=== PATIENT | male | born 1990 | race Two or more races ===

== ENCOUNTER 2022-03-26 00:29 | Emergency (ER) | payer SELFPAY ==
[~2022-03-26] VITALS: Ht 152.4 cm; Wt 71.8 kg
[2022-03-26 00:32] VITALS: BP 126/72
== END 2022-03-26 02:41 ==
LOC: ER 00:30
DX: F10.129 Alcohol abuse with intoxication, unspecified (principal); F17.200 Nicotine dependence, unspecified, uncomplicated; V87.7XXA Person injured in collision between other specified motor vehicles (traffic), initial encounter; Y93.89 Activity, other specified; Y92.89 Other specified places as the place of occurrence of the external cause; Y99.8 Other external cause status; Y90.9 Presence of alcohol in blood, level not specified
CPT/HCPCS: 99283